=== PATIENT | male | born 1980 | race Caucasian/White ===

== ENCOUNTER 2021-07-11 20:43 | Emergency (ER) | payer BC, MEDICAID ==
[2021-07-11 21:04] VITALS: BP 152/102; PULSE 77
[2021-07-11] MEDS ORDERED: Lidocaine 1% 10 ML MDV INJECT ONE (21:19)
[2021-07-11] MEDS ORDERED: Diphtheria,Pertussis(Acell),Tetanus Vaccine 0.5 ML Syringe IM ONE (21:19)
== END 2021-07-11 22:20 | disposition home or self-care (01) ==
LOC: JD.ED 20:43
DX: S67.21XA Crushing injury of right hand, initial encounter (principal); S61.210A Laceration without foreign body of right index finger without damage to nail, initial encounter; S61.216A Laceration without foreign body of right little finger without damage to nail, initial encounter; F17.210 Nicotine dependence, cigarettes, uncomplicated; I10 Essential (primary) hypertension; Z23 Encounter for immunization; W26.8XXA Contact with other sharp object(s), not elsewhere classified, initial encounter
CPT/HCPCS: 12002; 73130-26-RT; 73130-RT; 90471; 90715; 99283; 99283-25

== ENCOUNTER 2022-12-22 22:25 | Emergency (ER) | payer BC, OTHER ==
[2022-12-22 23:00] VITALS: BP 139/104; PULSE 78
== END 2022-12-23 02:25 | disposition home or self-care (01) ==
LOC: JD.ED 22:25
DX: S90.32XA Contusion of left foot, initial encounter (principal); Z79.899 Other long term (current) drug therapy; W20.8XXA Other cause of strike by thrown, projected or falling object, initial encounter
CPT/HCPCS: 73590-26-LT; 73590-LT; 73610-26-LT; 73610-LT; 73630-26-LT; 73630-LT; 73700-26-LT; 73700-LT; 99282; 99284